=== PATIENT | female | born 1945 | race Caucasian/White ===

== ENCOUNTER → 2018-11-16 | Outpatient (REF) | payer MEDICARE ==
[2018-11-16 14:00] LABS: BASO # 0.1 10^3/uL (0.0-0.2); BASO % 0.8 % (0.0-1.0); EOS # 0.3 10^3/uL (0.0-0.5); EOS % 3.9 % (0.0-3.0); HEMATOCRIT 36.9 % (36.0-47.0); HEMOGLOBIN 11.5 g/dl (12.0-15.5); LYMPH # 2.4 10^3/uL (1.5-5.0); MEAN CORPUSCULAR HEMOGLOBIN 28.7 pg (27.0-33.0); MEAN CORPUSCULAR HGB CONC 31.2 g/dl (32.0-36.5); MONO # 0.5 10^3/uL (0.0-0.8); MONO % 6.3 % (0.0-5.0); NEUTROPHILS # 5.1 10^3/uL (1.5-8.5); NEUTROPHILS % 60.6 % (36.0-66.0); PLATELET COUNT, AUTOMATED 342 10^3/uL (150-450); RED BLOOD COUNT 4.01 10^6/uL (4.00-5.40); WHITE BLOOD COUNT 8.4 10^3/uL (4.0-10.0)
[2018-11-16 14:12] LABS: ALBUMIN 3.7 GM/DL (3.2-5.2); ALT/SGPT 23 U/L (12-78); BILIRUBIN,TOTAL 0.4 MG/DL (0.2-1.0); BLOOD UREA NITROGEN 17 MG/DL (7-18); CALCIUM LEVEL 9.1 MG/DL (8.8-10.2); CARBON DIOXIDE LEVEL 29 MEQ/L (21-32); CHLORIDE LEVEL 105 MEQ/L (98-107); CREATININE FOR GFR 0.92 MG/DL (0.55-1.30); FREE T4 0.81 NG/DL (0.76-1.46); GLOMERULAR FILTRATION RATE > 60.0 (>39); GLUCOSE, FASTING 87 MG/DL (70-100); NT-PRO BNP 736 PG/ML (<125); POTASSIUM SERUM 4.4 MEQ/L (3.5-5.1); SODIUM LEVEL 142 MEQ/L (136-145); TOTAL PROTEIN 7.1 GM/DL (6.4-8.2)
== END ==
LOC: M LAB REF 12:51
PROVIDERS: ATTEND Internal Medicine Pulmonary Disease
DX: R91.8 Other nonspecific abnormal finding of lung field (principal)

== ENCOUNTER → 2018-11-30 | Outpatient (CLI) | payer MEDICARE ==
--- NOTE | 2018-12-01 07:40 | ECHO ---
DATE OF STUDY: 11/30/2018 REFERRING PHYSICIAN: Dr. Genie Thomas INDICATION: Dyspnea. HEIGHT: 158 cm. WEIGHT: 86 kg. DIMENSIONS: IVS: 1.3 LV: 5.0 LVPW: 1.2 LA: 4.5 Aorta: 3.5 RV: 3.6 IVC: 1.8 Mitral E wave velocity: 93 A wave: 54 E prime septal: 4.8 E prime lateral: 6.4 Left atrial volume index: 39 FINDINGS: The study is of acceptable technical quality. The patient is in sinus rhythm. Left ventricle is normal size and overall has normal contractility, I estimate ejection fraction (EF) around 60%. Mild left ventricle hypertrophy (LVH) is noted. Right ventricle appears normal size and systolic function. Left atrium is at least moderately enlarged. Right atrium is normal size. Aortic valve is sclerotic, but has preserved mobility. Mitral, tricuspid and pulmonic valves appear normal. Trace pericardial effusion is present. Inferior vena cava is normal size and appropriately collapses with respiration indicative of likely normal central venous pressure. Aortic root is normal. Aortic arch and abdominal aorta were not well seen. Doppler interrogation of aortic valve reveals no stenosis and trace insufficiency. There is opkx-rf-fpeomdis mitral insufficiency and trace tricuspid insufficiency. Calculated pulmonary artery pressure is in high 30s or low 40s corresponding to at minimum mild pulmonary hypertension. Mitral inflow pattern and tissue Doppler imaging of mitral annulus reveal grade 2 diastolic dysfunction. CONCLUSIONS: 1. Study is of acceptable technical quality. 2. Normal LV size with mild left ventricular hypertrophy and preserved LV systolic function. Grade 2 diastolic dysfunction. 3. Aortic sclerosis with no stenosis and trace insufficiency. 4. Pqib-vl-aeawkfrf mitral insufficiency. 5. Normal central venous pressure. 6. At least mild pulmonary hypertension. 7. Left atrial enlargement. 8. Small pericardial effusion. COMMENT: Subacute bacterial endocarditis (SBE) prophylaxis is not recommended. MTDD
--- NOTE | 2018-12-04 08:54 | PFTRPT ---
Height: 63.00 Inches Weight: 190.00 Lbs BSA: 1.89 Diagnosis: R91.8 DATE OF PROCEDURE: 11/30/2018 ORDERED BY: Dr. Thomas Spirometry: Pre and post bronchodilator study of excellent technical quality. Forced vital capacity reduced. FEV1 in proportion. Obstructive index is, therefore, normal. Flow Volume Loop: Expiratory limb of the flow volume loop does suggest significant flow rate limitation. No significant bronchodilator response identified. Lung Volumes: Total lung capacity normal. Residual volume consistent with significant air trapping. Diffusing Capacity: Diffusing capacity reduced but is appropriate for alveolar volume. Hemoglobin: Hemoglobin acceptable at 12.1. Airway Mechanics: Airway resistance and conductance are normal. IMPRESSION: Suspect underlying obstructive impairment with air trapping. Decrease in the absolute diffusing capacity. Please correlate clinically. MTDD
== END ==
LOC: M CARPUL 08:33
PROVIDERS: ATTEND Internal Medicine Pulmonary Disease
DX: R55 Syncope and collapse (principal); I31.3 Pericardial effusion (noninflammatory); I08.1 Rheumatic disorders of both mitral and tricuspid valves; I27.20 Pulmonary hypertension, unspecified; R91.8 Other nonspecific abnormal finding of lung field

== ENCOUNTER → 2019-11-12 | Outpatient (CLI) | payer MEDICARE | LOC: M PAIN 13:08 | PROVIDERS: ATTEND Family Medicine | DX: R07.89 Other chest pain (principal) ==

== ENCOUNTER → 2020-02-13 | Outpatient (CLI) | payer MEDICARE ==
[~2020-02-13] MED LIST: ATOR40TA75 PO; CALC600T57 PO; CENT1TAB9 PO; D32000TA PO; DEXA2TA PO; ESOM40CA35 PO; FENT10PA TOP; FURO40TA2 PO; GABA-843 PO; HYDR2TAB2 PO; ISOVUE-370 76% 100ML VIAL As Ordered ONE; LEVO100T5 PO; LOSA100T50 PO; LOVE0.6I2 SC; METO1TAB87 PO; ONDA-83 PO; OXYC10TA12 PO; PARO30TA4 PO; POTA1TAB23 PO; SPIR-10 PO; XARE20TA PO
--- NOTE | 2020-02-14 12:00 | REP ---
INDICATION: SUPRACLAVICULAR LYMPHADENOPATHY, HX CA, COMPARE COMPARISON: None TECHNIQUE: Axial contrast enhanced images from the thoracic inlet to the upper abdomen with coronal and sagittal reformations using 100 ml Isovue 370 intravenous contrast material. This CT examination was performed using the following dose reduction techniques: Automated exposure control, adjustment of mA and/or kv according to the patient's size, and use of iterative reconstruction technique. FINDINGS: There is a pulmonary embolus in the left lower lobe pulmonary artery along with presumed extrinsic compression and obstruction of the left lower lobe bronchus with associated left lower lobe collapse and small left pleural effusion. Within the area of left lower lobe collapse there appear to be metallic clips and surgical suture material suggesting prior intervention. Postsurgical changes with central surgical material and surrounding irregular fibrosis/scarring is also identified in the right upper lobe which remains relatively stable compared to 10/05/2018. The bilateral aerated lung torres demonstrate underlying chronic emphysematous and scattered interstitial changes similar to prior examination and without obvious new focal area of consolidation or suspicious mass lesion. No pneumothorax. Further evaluation of the mediastinum demonstrates extensive atherosclerotic changes to the thoracic aorta and coronary arteries without aortic aneurysm or significant cardiomegaly. A small amount of pericardial fluid appears relatively unchanged compared to 2019. No obvious mediastinal or hilar adenopathy is identified. Surrounding musculoskeletal structures demonstrate age-related changes without obvious focal osseous abnormality. Limited upper abdomen demonstrates few relatively hypodense hepatic lesions which are nonspecific but concerning for metastatic disease along with stable 2.6 cm right adrenal mass and stable 2.5 cm left adrenal myelolipoma. IMPRESSION: 1. Left lower lobe pulmonary embolus with presumed extrinsic compression to the left lower lobe bronchus and collapse to the left lower lobe with small associated left pleural effusion. These findings were directly conveyed and discussed with Dr. Guerrier. 2. Further chronic pulmonary parenchymal and pleural findings without significant change from prior examination. 3. Subtle hepatic hypodensities cannot be further characterized but given the patient's known malignancy, metastatic disease must be considered. 4. Right adrenal mass and left adrenal myelolipoma essentially unchanged compared to 2019. <Electronically signed by José Miguel Hanks > 02/14/20 [id number]
--- NOTE | 2020-02-14 12:10 | REP ---
INDICATION: SUPRACLAVICULAR LYMPHADENOPATHY, HX CA, COMPARE. COMPARISON: None. TECHNIQUE: Axial contrast-enhanced images were obtained from the skull base to the thoracic inlet using 100 cc Isovue 370 intravenous contrast material followed by CT of the chest. Coronal and sagittal reformations obtained. This CT examination was performed using the following dose reduction techniques: Automated exposure control, adjustment of mA and/or kv according to the patient's size, and the use of iterative reconstruction technique. FINDINGS: The naso, ulysses and hypopharynx and associated soft tissue structures appear normal and symmetric. The larynx and subglottic trachea along with surrounding soft tissue structures are normal in appearance. No evidence for mass or mass effect. Parapharyngeal and retropharyngeal spaces are normal. The salivary and thyroid glands are normal in size and density. The visualized sinuses are clear. Small lymph nodes less than 1 cm in size are present in the internal jugular chains, posterior triangles, submandibular and submental areas without evidence for significant adenopathy. The supraclavicular region and thoracic inlet are unremarkable. The lung apices demonstrate chronic appearing interstitial changes and scarring as well as posterior pleural thickening (left greater than right). The visualized osseous structures appear intact and age-appropriate. IMPRESSION: 1. Essentially normal age-appropriate CT angiography of the neck. 2. No evidence for supraclavicular adenopathy. <Electronically signed by José Miguel Hanks > 02/14/20 [id number]
== END ==
LOC: M RAD 16:31
PROVIDERS: ATTEND Internal Medicine Hematology & Oncology
DX: R59.0 Localized enlarged lymph nodes (principal); Z85.9 Personal history of malignant neoplasm, unspecified
CPT/HCPCS: 70491; 71260; Q9967

== ENCOUNTER 2020-02-14 13:49 | Inpatient (IN) | payer MEDICARE ==
[~2020-02-14] VITALS: Ht 162.6 cm; Wt 78.3 kg
[2020-02-14 14:26] LABS: BASO % 0.1 % (0.0-1.0); EOS % 0.1 % (0.0-3.0); HEMATOCRIT 34.7 % (36.0-47.0); HEMOGLOBIN 10.2 g/dl (12.0-15.5); LYMPH # 0.4 10^3/uL (1.5-5.0); LYMPH % 3.2 % (24.0-44.0); MEAN CORPUSCULAR HGB CONC 29.4 g/dl (32.0-36.5); MEAN CORPUSCULAR VOLUME 108.8 fl (80.0-96.0); MONO # 0.3 10^3/uL (0.0-0.8); MONO % 2.2 % (0.0-5.0); NEUTROPHILS # 11.6 10^3/uL (1.5-8.5); NEUTROPHILS % 93.8 % (36.0-66.0); PLATELET COUNT, AUTOMATED 386 10^3/uL (150-450); RED BLOOD COUNT 3.19 10^6/uL (4.00-5.40); WHITE BLOOD COUNT 12.4 10^3/uL (4.0-10.0)
[2020-02-14 14:37] LABS: INR 1.55; PROTHROMBIN TIME 18.9 SECONDS (12.5-14.3)
[2020-02-14 14:38] LABS: PARTIAL THROMBOPLASTIN TIME 30.9 SECONDS (24.2-38.5)
[2020-02-14 15:03] LABS: ALBUMIN 3.5 GM/DL (3.2-5.2); ALT/SGPT 37 U/L (12-78); BILIRUBIN,DIRECT < 0.1 MG/DL (0.0-0.2); BILIRUBIN,TOTAL 0.2 MG/DL (0.2-1.0); BLOOD UREA NITROGEN 20 MG/DL (7-18); CALCIUM LEVEL 8.5 MG/DL (8.8-10.2); CARBON DIOXIDE LEVEL 35 MEQ/L (21-32); CHLORIDE LEVEL 103 MEQ/L (98-107); CK-MB VALUE MASS 1.4 NG/ML (<3.6); CPK CREATINE PHOSPHOKINASE 76 U/L (26-192); CREATININE FOR GFR 0.84 MG/DL (0.55-1.30); FREE T4 0.97 NG/DL (0.76-1.46); GLOMERULAR FILTRATION RATE > 60.0 (>39); GLUCOSE, FASTING 120 MG/DL (70-100); MB/CK RELATIVE INDEX 1.84 (< OR =4); SODIUM LEVEL 143 MEQ/L (136-145); TOTAL PROTEIN 6.8 GM/DL (6.4-8.2); TROPONIN I < 0.02 NG/ML (< 0.10)
[2020-02-14] MEDS ORDERED: HEPARIN DRIP 25,000 UNITS in IV 1 EA IV SCH ×5 (15:15→16:12)
[2020-02-14] MEDS ORDERED: HEPARIN SOD (PORCINE) 5000UNITS/ML 1ML VIAL/SYRINGE IV ONE (15:15)
[2020-02-14 15:29] LABS: RSV AMPLIFICATION NEGATIVE (NEGATIVE)
[2020-02-14] MEDS ORDERED: ATOR40TA75 PO (15:41)
[2020-02-14] MEDS ORDERED: FURO40TA2 PO (15:41)
[2020-02-14] MEDS ORDERED: DEXA2TA PO (15:41)
[2020-02-14] MEDS ORDERED: LEVO100T5 PO (15:41)
[2020-02-14] MEDS ORDERED: ESOM40CA35 PO (15:41)
[2020-02-14] MEDS ORDERED: LOSA100T50 PO (15:41)
[2020-02-14] MEDS ORDERED: XARE20TA PO (15:41)
[2020-02-14] MEDS ORDERED: POTA1TAB23 PO (15:41)
[2020-02-14] MEDS ORDERED: PARO30TA4 PO (15:41)
[2020-02-14] MEDS ORDERED: HYDR2TAB2 PO (15:41)
[2020-02-14] MEDS ORDERED: METO1TAB87 PO (15:41)
[2020-02-14] MEDS ORDERED: FENT10PA TOP (15:41)
[2020-02-14] MEDS ORDERED: GABA-843 PO (15:41)
[2020-02-14] MEDS ORDERED: CENT1TAB9 PO (15:52)
[2020-02-14] MEDS ORDERED: OXYC10TA12 PO (15:52)
[2020-02-14] MEDS ORDERED: ONDA-83 PO (15:52)
[2020-02-14] MEDS ORDERED: SPIR-10 PO (15:52)
[2020-02-14] MEDS ORDERED: D32000TA PO (15:56)
[2020-02-14] MEDS ORDERED: CALC600T57 PO (15:56)
[2020-02-14] MEDS ORDERED: HEPARIN SOD (PORCINE) 5000UNITS/ML 1ML VIAL/SYRINGE IV PRN (16:15)
[2020-02-14 17:32] LABS: HEMATOCRIT 32.6 % (36.0-47.0); HEMOGLOBIN 9.5 g/dl (12.0-15.5); MEAN CORPUSCULAR HGB CONC 29.1 g/dl (32.0-36.5); MEAN CORPUSCULAR VOLUME 109.8 fl (80.0-96.0); PLATELET COUNT, AUTOMATED 340 10^3/uL (150-450); RED BLOOD COUNT 2.97 10^6/uL (4.00-5.40); WHITE BLOOD COUNT 10.4 10^3/uL (4.0-10.0)
[2020-02-14 18:00] VITALS: BP 150/81
[2020-02-14] MEDS ORDERED: ONDANSETRON 4 MG TAB PO PRN (18:45)
[2020-02-14] MEDS ORDERED: oxyCODONE 5MG TAB PO PRN (18:45)
--- NOTE | 2020-02-14 18:53 | HPEPDOC ---
[facility] Medical History & Physical Date of Admission Feb 14, 2020 Date of Service: Feb 14, 2020 History and Physical CHIEF COMPLAINT: "I was sent over by my cancer doctor because of a clot in my chest. ' HISTORY OF PRESENT ILLNESS: 74-year-old female with chronic A. fib on Xarelto, hypertension, hyperlipidemia, history of lung cancer 11 years ago, status post surgical resection, chemotherapy and radiation with recurrence noted 2 years ago with metastatic lesions to the lumbar spine managed by Dr. Guerrier, medical oncologist in [place], undergoing chemotherapy and radiation had been in her usual state of health until a few days ago when she developed worsening shortness of breath and dyspnea exertion after walking 10-15 feet, especially worsened when she bends down. She otherwise denies any lower extremity edema, PND, orthopnea, fever, chills or cough no bright red blood per rectum, melena, black tarry stools or hematemesis. Patient had been on keytruda but developed issues with her heart, so it was subsequently discontinued. Recent PET scan did not show any brain metastasis. Patient was found to have a lesion in the left supraclavicular area and was sent to Dr. Flash Lema thoracic surgeon who obtained a CT of the chest done 02/13/2020. Dr. Guerrier, her medical oncologist from [place], albrecht d her at home to tell her to calm to [facility] for admission due to a new finding of pulmonary embolism. In the ER, patient was not tachypneic or hypoxic. Blood pressure was stable .Her EKG showed sinus rhythm, ventricular rate of 69 with left axis deviation. Hospitalist was called to admit for pul monary embolism. Medical oncologist organizational psychologist at the [facility] Doctor STERLING, recommended Lovenox 1 mg/kg subcutaneous every 12 hourly as bridge therapy with warfarin for Target INR of 2-3. , Emergency room physician started the patient on intravenous heparin drip. Patient had received a bolus and maintenance therapy prior to hospitalist admitting her for PE. Per pharmacy. Patient may be given Lovenox 2 hours after heparin. PAST MEDICAL HISTORY: chronic A. fib on Xarelto, hypertension, hyperlipidemia, history of lung cancer 11 years ago, status post surgical resection, chemotherapy and radiation with recurrence noted 2 years ago with metastatic lesions to the lumbar spine managed by Dr. Guerrier, medical oncologist in [place]. PAST SURGICAL HISTORY: Lung cancer with bilateral surgical resection. 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 2 packs a day for 40 years, quit 11 years ago. Tobacco abuse. No alcohol abuse. Denies recreational drug use. Healthcare proxy are her and her son FAMILY HISTORY: Noncontributory due to age ALLERGIES: Please see below. REVIEW OF SYSTEMS: Per HPI, 12 point system otherwise negative HOME MEDICATIONS: Please see below. PHYSICAL EXAMINATION: VITAL SIGNS: See below GENERAL APPEARANCE: Left facial droop appears older than her stated age HEENT: No JVD, no thyromegaly, no cervical lymphadenopathy. No jugular venous distention CARDIOVASCULAR: S1, S2, irregularly irregular LUNGS: Clear to auscultation. No wheezing, rales or rhonchi. Well-healed scars ABDOMEN: Obese, soft, nontender, nondistended MUSCULOSKELETAL: No cyanosis, clubbing or pitting edema LABORATORY DATA: See below. EKG sinus rhythm, ventricular rate 69, left axis deviation, WI interval 142, QRS 100, QTC 404, QTC 423 IMAGING: See below MICROBIOLOGY: Please see below. ASSESSMENT: 74-year-old female with chronic A. fib on Xarelto, hypertension, hyperlipidemia, history of lung cancer 11 years ago, status post surgical resection, chemotherapy and radiation with recurrence noted 2 years ago with metastatic lesions to the lumbar spine managed by Dr. Guerrier, medical oncologist in [place], undergoing chemotherapy and radiation had been in her usual state of health until a few days ago when she developed worsening shortness of breath and dyspnea exertion after walking 10-15 feet, especially worsened when she bends down. She otherwise denies any lower extremity edema, PND, orthopnea, fever, chills or cough no bright red blood per rectum, melena, black tarry stools or hematemesis. Patient had been on keytruda but developed issues with her heart, so it was subsequently discontinued. Recent PET scan did not show any brain metastasis. Patient was found to have a lesion in the left supraclavicular area and was sent to Dr. Flash Lema thoracic surgeon who obtained a CT of the chest done 02/13/2020. Dr. Guerrier, her medical oncologist from [place], called her at home to tell her to calm to [facility] for admission due to a new finding of pulmonary embolism. In the ER, patient was not tachypneic or hypoxic. Her EKG showed sinus rhythm, ventricular rate of 69 with left axis deviation. Hospitalist was called to admit for pulmonary embolism. Medical oncologist organizational psychologist at the [facility]., Doctor STERLING, recommended Lovenox 1 mg/kg subcutaneous every 12 hourly as bridge therapy with warfarin. 2. Target INR of 2-3. , Emergency room physician started the patient on intravenous heparin drip. Patient had received a bolus and maintenance therapy prior to hosp italist admitting her for PE. Per pharmacy. Patient may be given Lovenox 2 hours after heparin. Left lower lobe pulmonary embolism -Patient will be admitted for observation area and -She is hemodynamically stable -Per [facility] medical oncologist organizational psychologist, Dr. KATZ, there have been cases of DVT and PE despite using Xarelto. -Dr. 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 Guerrier medical oncologist from [place] -Palliative radiation to metastatic lesions to the bone Chronic atrial fibrillation on Xarelto -Xarelto has been discontinued -She was given IV heparin in the emergency room -Per medical oncologist on-call , Lovenox has been found to be superior to heparin in patients with hypercoagulable state from cancer was developed DVT and PE. -Patient has been started on Lovenox Hypertension -Resume on home medications Dyslipidemia -Resumed on home meds Supraclavicular lymphadenopathy -Outpatient follow-up with Dr. Flash Lema thoracic surgeon for biopsy -Anticoagulation will be held prior to planned biopsy as outpatient Disposition PFS consulted to assist in Lovenox preauthorization. Patient is otherwise medically stable for discharge home anytime that insurance approves. Vital Signs Vital Signs Date Time Temp Pulse Resp B/P (MAP) Pulse Ox O2 Delivery O2 Flow Rate FiO2 02/14/20 17:39 97.6 02/14/20 17:19 69 100 02/14/20 17:15 131/67 (88) 02/14/20 15:34 18 02/14/20 14:23 Nasal Cannula 2.0 Laboratory Data Labs 24H Laboratory Tests 2 02/14/20 13:57: Immature Granulocyte % (Auto) 0.6, Neutrophils (%) (Auto) 93.8H, Lymphocytes (%) (Auto) 3.2L, Monocytes (%) (Auto) 2.2, Eosinophils (%) (Auto) 0.1, Basophils (%) (Auto) 0.1, Neutrophils # (Auto) 11.6H, Lymphocytes # (Auto) 0.4L, Monocytes # (Auto) 0.3, Eosinophils # (Auto) 0.0, Basophils # (Auto) 0.0, Nucleated Red Blood Cells % (auto) 0.0, Prothrombin Time 18.9H, Prothromb Time International Ratio 1.55, Activated Partial Thromboplast Time 30.9, Anion Gap 5L, Glomerular Filtration Rate > 60.0, Calcium Level 8.5L, Total Bilirubin 0.2, Direct Bilirubin < 0.1, Aspartate Amino Transf (AST/SGOT) 27, Alanine Aminotransferase (ALT/SGPT) 37, Alkaline Phosphatase 66, Total Creatine Kinase 76, Creatine Kinase MB 1.4, Creatine Kinase MB Relative Index 1.84, Troponin I < 0.02, Total Protein 6.8, Albumin 3.5, Albumin/Globulin Ratio 1.1L, Thyroid Stimulating Hormone (TSH) 1.080, Free Thyroxine 0.97 02/14/20 14:44: Coronavirus (COVID-19)(PCR) NEGATIVE, Influenza Type A (RT-PCR) NEGATIVE, Influenza Type B (RT-PCR) NEGATIVE, Respiratory Syncytial Virus (PCR) NEGATIVE 02/14/20 17:21: Nucleated Red Blood Cells % (auto) 0.0 CBC/BMP Laboratory Tests 02/14/20 13:57 02/14/20 17:21 Home Medications Scheduled Atorvastatin Calcium (Atorvastatin Calcium) 40 Mg Tablet, 40 MG PO DAILY Calcium Carbonate/Vitamin D3 (Calcium 600-Vit D3 200 Tablet) 1 Each Tablet, 1 TAB PO DAILY Cholecalciferol (Vitamin D3) (Vitamin D3) 50 Mcg Tablet, 50 MCG PO DAILY Dexamethasone (Dexamethasone) 2 Mg Tablet, 2 MG PO BID Esomeprazole Magnesium (Esomeprazole Magnesium Dr) 40 Mg Capsule.dr, 40 MG PO DAILY Fentanyl (Fentanyl) 100 Mcg Patch.td72, 1 APPLIC TOP Q2D APPLY 2 PATCHES TOPICALLY EVERY 48 HOURS Furosemide (Furosemide) 40 Mg Tablet, 40 MG PO DAILY Gabapentin (Gabapentin) 300 Mg Capsule, 300 MG PO BID Levothyroxine Sodium (Levothyroxine Sodium) 100 Mcg Tablet, 100 MCG PO DAILY Losartan Potassium (Losartan Potassium) 100 Mg Tablet, 100 MG PO DAILY Metoprolol Tartrate (Metoprolol Tartrate) 25 Mg Tablet, 25 MG PO BID Multivit-Min/Iron/Folic/Lutein (Centrum Silver Women Tablet) 1 Each Tablet, 1 EACH PO DAILY Paroxetine (Paroxetine HCl) 30 Mg Tablet, 30 MG PO DAILY Potassium Chloride (Potassium Chloride) 10 Meq Tablet.er, 10 MEQ PO DAILY Rivaroxaban (Xarelto) 20 Mg Tablet, 20 MG PO DAILY Spironolactone (Spironolactone) 25 Mg Tablet, 12.5 MG PO DAILY Scheduled PRN Hydromorphone HCl (Hydromorphone HCl) 2 Mg Tablet, 2 MG PO Q6H PRN for PAIN Ondansetron HCl (Ondansetron HCl) 4 Mg Tablet, 4 MG PO Q6H PRN for NAUSEA OR VOMITING Oxycodone HCl (Oxycodone HCl) 10 Mg Tablet, 10 MG PO Q4H PRN for BREAKTHROUGH PAIN Allergies Coded Allergies: latex (Verified Allergy, Intermediate, hives, 02/14/20) A-FIB/CHADSVASC A-FIB History Current/History of A-Fib/PAF?: Yes Current PO Anticoag Therapy: Yes Age/Risk Factor Scoring CHADSVASC: CHADSVASC Response (Comments) Value Age Risk Factor Age >/= 75 years old 2 Gender Risk Factor Female 1 Hx of CHF No 0 Hx of HTN Yes 1 Hx of Stroke/TIA/or VTE Yes 2 Hx of Diabetes No 0 Total 6 Treatment Treatment ordered: Other Other anticoagulant ordered: MARTHA Guajardo MD Feb 14, 2020 18:53
[2020-02-14] MEDS: GABAPENTIN 300 MG CAP PO SCH (20:49)
[2020-02-14] MEDS: ENOXAPARIN 80MG/0.8ML SYRINGE (J1650 PER 10MG) SC SCH (20:49)
[2020-02-14] MEDS: METOPROLOL TART 25 MG TABLET PO SCH (21:06)
[2020-02-14 22:00] VITALS: BP 128/64
[2020-02-14] MEDS: HYDROmorphone 2 MG TAB PO PRN (23:41)
[2020-02-15 06:00] VITALS: BP 129/67
[2020-02-15] MEDS ORDERED: LEVOTHYROXINE 100MCG TABLET (0.1MG) PO SCH (06:00)
[2020-02-15 06:42] LABS: INR 1.02; PROTHROMBIN TIME 13.6 SECONDS (12.5-14.3)
[2020-02-15] MEDS ORDERED: LOVE0.6I2 SC (07:31)
[2020-02-15] MEDS: ENOXAPARIN 80MG/0.8ML SYRINGE (J1650 PER 10MG) SC SCH (07:52)
[2020-02-15 07:53] VITALS: BP 130/66
[2020-02-15] MEDS: METOPROLOL TART 25 MG TABLET PO SCH (07:53)
[2020-02-15] MEDS: GABAPENTIN 300 MG CAP PO SCH (07:54)
[2020-02-15] MEDS: HYDROmorphone 2 MG TAB PO PRN (07:55)
--- NOTE | 2020-02-15 08:46 | DS.PDOC ---
Discharge Summary General Date of Admission Feb 14, 2020 at 16:12 Date of Discharge 02/15/20 Discharge Summary DISCHARGE DIAGNOSES: PE Recurrent lung cancer with bone mets LAD Chronic Atrial Fibrillation HTN Dyslipidemia DISCHARGE MEDICATIONS: see below DISCHARGE INSTRUCTIONS: Dr. Guerrier and PCP fu within 5-7days. continue with lovenox 80mg sq q12hrs. HOSPITAL COURSE: 74-year-old female with chronic A. fib on Xarelto, hypertension, hyperlipidemia, history of lung cancer 11 years ago, status post surgical resection, chemotherapy and radiation with recurrence noted 2 years ago with metastatic lesions to the lumbar spine managed by Dr. Guerrier, medical oncologist in [place], undergoing chemotherapy and radiation had been in her usual state of health until a few days ago when she developed worsening shortness of breath and dyspnea exertion after walking 10-15 feet, especially worsened when she bends down. She otherwise denies any lower extremity edema, PND, orthopnea, fever, chills or cough no bright red blood per rectum, melena, black tarry stools or hematemesis. Patient had been on keytruda but developed issues with her heart, so it was subsequently discontinued. Recent PET scan did not show any brain metastasis. Patient was found to have a lesion in the left supraclavicular area and was sent to Dr. Flash Lema thoracic surgeon who obtained a CT of the chest done 02/13/2020. Dr. Guerrier, her medical oncologist from [place], called her at home to tell her to calm to [facility] for admission due to a new finding of pulmonary embolism. In the ER, patient was not tachypneic or hypoxic. Her EKG showed sinus rhythm, ventricular rate of 69 with left axis deviation. Hospitalist was called to admit for pulmonary embolism. Medical oncologist pipe production worker at the [facility] Doctor STERLING, recommended Lovenox 1 mg/kg subcutaneous every 12 hourly as bridge therapy with warfarin. 2. Target INR of 2-3. , Emergency room physician started the patient on intravenous heparin drip. Patient had received a bolus and maintenance therapy prior to hospitalist admitting her for PE. Per pharmacy. Patient may be given Lovenox 2 hours after heparin. Left lower lobe pulmonary embolism -Patient will be admitted for observation area and -She is hemodynamically stable -Per [facility] medical oncologist pipe production worker, Dr. KATZ, there have been cases of DVT and PE despite using Xarelto. -Dr. 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 Guerrier medical oncologist from [place] -Palliative radiation to metastatic lesions to the bone Chronic atrial fibrillation on Xarelto -Xarelto has been discontinued -She was given IV heparin in the emergency room -Per medical oncologist on-call , Lovenox has been found to be superior to heparin in patients with hypercoagulable state from cancer was developed DVT and PE. -Patient has been started on Lovenox Hypertension -Resume on home medications Dyslipidemia -Resumed on home meds Supraclavicular lymphadenopathy -Outpatient follow-up with Dr. Flash Lema thoracic surgeon for biopsy -Anticoagulation will be held prior to planned biopsy as outpatient Disposition: dc home in stable condition on lovenox sq q12hrs. Pt's medical oncologist pipe production worker Dr. Guerrier's office was notified of pt's discharge plan at 0725am 02/15/20. DISCHARGE PHYSICAL EXAMINATION: VITAL SIGNS: See below GENERAL APPEARANCE: no respiratory distress. no pallor no use of resp acc mm. HEENT: No JVD, no thyromegaly, no cervical lymphadenopathy. No jugular venous distention CARDIOVASCULAR: S1, S2, irregularly irregular LUNGS: Clear to auscultation. No wheezing, rales or rhonchi. Well-healed scars ABDOMEN: Obese, soft, nontender, nondistended MUSCULOSKELETAL: No cyanosis, clubbing or pitting edema DISCHARGE LABORATORY DATA: See below. EKG sinus rhythm, ventricular rate 69, left axis deviation, MA interval 142, QRS 100, QTC 404, QTC 423 IMAGING: See below MICROBIOLOGY: Please see below. TIME SPENT ON DISCHARGE: 30 MIN Vital Signs/I&Os Vital Signs Date Time Temp Pulse Resp B/P (MAP) Pulse Ox O2 Delivery O2 Flow Rate FiO2 02/15/20 07:55 19 02/15/20 07:53 77 130/68 02/15/20 06:00 98.0 100 Nasal Cannula 2.0 I&O- Last 24 Hours up to 6 AM 02/15/20 06:00 Intake Total 192.36 ml Output Total 100 ml Balance 92.36 ml Laboratory Data Labs 24H Laboratory Tests 2 02/14/20 13:57: Immature Granulocyte % (Auto) 0.6, Neutrophils (%) (Auto) 93.8H, Lymphocytes (%) (Auto) 3.2L, Monocytes (%) (Auto) 2.2, Eosinophils (%) (Auto) 0.1, Basophils (%) (Auto) 0.1, Neutrophils # (Auto) 11.6H, Lymphocytes # (Auto) 0.4L, Monocytes # (Auto) 0.3, Eosinophils # (Auto) 0.0, Basophils # (Auto) 0.0, Nucleated Red Blood Cells % (auto) 0.0, Prothrombin Time 18.9H, Prothromb Time International Ratio 1.55, Activated Partial Thromboplast Time 30.9, Anion Gap 5L, Glomerular Filtration Rate > 60.0, Calcium Level 8.5L, Total Bilirubin 0.2, Direct Bilirubin < 0.1, Aspartate Amino Transf (AST/SGOT) 27, Alanine Aminotransferase (ALT/SGPT) 37, Alkaline Phosphatase 66, Total Creatine Kinase 76, Creatine Kinase MB 1.4, Creatine Kinase MB Relative Index 1.84, Troponin I < 0.02, Total Protein 6.8, Albumin 3.5, Albumin/Globulin Ratio 1.1L, Thyroid Stimulating Hormone (TSH) 1.080, Free Thyroxine 0.97 02/14/20 14:44: Coronavirus (COVID-19)(PCR) NEGATIVE, Influenza Type A (RT-PCR) NEGATIVE, Influenza Type B (RT-PCR) NEGATIVE, Respiratory Syncytial Virus (PCR) NEGATIVE 02/14/20 17:21: Nucleated Red Blood Cells % (auto) 0.0 02/14/20 21:36: Activated Partial Thromboplast Time 37.2 02/15/20 05:49: Prothrombin Time 13.6, Prothromb Time International Ratio 1.02 CBC/BMP Laboratory Tests 02/14/20 13:57 02/14/20 17:21 Discharge Medications Scheduled Atorvastatin Calcium (Atorvastatin Calcium) 40 Mg Tablet, 40 MG PO DAILY, (Repor kelli) Calcium Carbonate/Vitamin D3 (Calcium 600-Vit D3 200 Tablet) 1 Each Tablet, 1 TAB PO DAILY, (Reported) Cholecalciferol (Vitamin D3) (Vitamin D3) 50 Mcg Tablet, 50 MCG PO DAILY, (Reported) Dexamethasone (Dexamethasone) 2 Mg Tablet, 2 MG PO BID, (Reported) Enoxaparin Sodium (Lovenox) 80 Mg/0.8 Ml Syringe, 80 MG SC Q12H Esomeprazole Magnesium (Esomeprazole Magnesium Dr) 40 Mg Capsule.dr, 40 MG PO DAILY, (Reported) Fentanyl (Fentanyl) 100 Mcg Patch.td72, 1 APPLIC TOP Q2D, (Reported) APPLY 2 PATCHES TOPICALLY EVERY 48 HOURS Furosemide (Furosemide) 40 Mg Tablet, 40 MG PO DAILY, (Reported) Gabapentin (Gabapentin) 300 Mg Capsule, 300 MG PO BID, (Reported) Levothyroxine Sodium (Levothyroxine Sodium) 100 Mcg Tablet, 100 MCG PO DAILY, (Reported) Losartan Potassium (Losartan Potassium) 100 Mg Tablet, 100 MG PO DAILY, (Reported) Metoprolol Tartrate (Metoprolol Tartrate) 25 Mg Tablet, 25 MG PO BID, (Reported) Multivit-Min/Iron/Folic/Lutein (Centrum Silver Women Tablet) 1 Each Tablet, 1 EACH PO DAILY, (Reported) Paroxetine (Paroxetine HCl) 30 Mg Tablet, 30 MG PO DAILY, (Reported) Potassium Chloride (Potassium Chloride) 10 Meq Tablet.er, 10 MEQ PO DAILY, (Reported) Spironolactone (Spironolactone) 25 Mg Tablet, 12.5 MG PO DAILY, (Reported) Scheduled PRN Hydromorphone HCl (Hydromorphone HCl) 2 Mg Tablet, 2 MG PO Q6H PRN for PAIN, (Reported) Ondansetron HCl (Ondansetron HCl) 4 Mg Tablet, 4 MG PO Q6H PRN for NAUSEA OR VOMITING, (Reported) Oxycodone HCl (Oxycodone HCl) 10 Mg Tablet, 10 MG PO Q4H PRN for BREAKTHROUGH PAIN, (Reported) Allergies Coded Allergies: latex (Verified Allergy, Intermediate, hives, 02/14/20) MARTHA WHITLEY MD Feb 15, 2020 08:46
[2020-02-15] MEDS ORDERED: POTASSIUM CHLORIDE 10 MEQ SR TABLET PO SCH (09:00)
[2020-02-15] MEDS ORDERED: SPIRONOLACTONE 12.5MG PER 1/2 TABLET PO SCH (09:00)
[2020-02-15] MEDS ORDERED: LOSARTAN 50MG TABLET PO SCH (09:00)
[2020-02-15] MEDS ORDERED: FUROSEMIDE 40 MG TAB PO SCH (09:00)
[2020-02-15] MEDS ORDERED: ATORVASTATIN 20 MG TAB PO SCH (09:00)
--- NOTE | 2020-02-15 09:22 | REP ---
INDICATION: edema r/o dvt COMPARISON: None. TECHNIQUE: Craig scale and color Doppler evaluation bilateral lower extremities using linear high frequency transducer. FINDINGS: Ultrasound examination of the right and left lower extremity deep venous structures from the common femoral vein to the popliteal vein demonstrates normal compressibility flow and wave patterns in response to respiration and augmentation. There is no evidence for deep venous thrombosis. IMPRESSION: No evidence for deep venous thrombosis. <Electronically signed by José Miguel Hanks > 02/15/20 0918
--- NOTE | 2020-02-15 15:48 | ECGEPIP ---
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
[2020-02-15] MEDS ORDERED: ENOXAPARIN 80MG/0.8ML SYRINGE (J1650 PER 10MG) SC SCH (20:00)
== END 2020-02-15 09:32 | disposition home health service (06) | DRG 176 ==
LOC: M ED 13:49 → M ED INP 16:12 → ENRESERV 16:57 → M MSPAV 17:52
PROVIDERS: ADMIT General Practice; ATTEND General Practice
DX: I26.99 Other pulmonary embolism without acute cor pulmonale (principal); I48.20 Chronic atrial fibrillation, unspecified; C79.51 Secondary malignant neoplasm of bone; C34.90 Malignant neoplasm of unspecified part of unspecified bronchus or lung; I10 Essential (primary) hypertension; E78.5 Hyperlipidemia, unspecified; R59.0 Localized enlarged lymph nodes; Z66 Do not resuscitate; Z90.2 Acquired absence of lung [part of]; Z92.21 Personal history of antineoplastic chemotherapy; Z92.3 Personal history of irradiation; Z79.01 Long term (current) use of anticoagulants; Z87.891 Personal history of nicotine dependence; Z79.899 Other long term (current) drug therapy; Z91.040 Latex allergy status; Z20.828 Contact with and (suspected) exposure to other viral communicable diseases